=== PATIENT | female | born 1970 | race Caucasian/White ===

== ENCOUNTER 2017-02-02 02:39 | Inpatient (IN) | payer OTHER ==
[~2017-02-02] VITALS: Ht 170.2 cm; Wt 87.1 kg
[~2017-02-02 02:39] MED LIST: ALTACE1.25 MG PO; CARVEDILOL12.5 MG PO; CARVEDILOL25 M1 PO; COREG 25 MG TAB25 MG PO; PERCOCET 325 MG1 TA2 PO; RAMIPRIL PO; RAMIPRIL1.25 MG PO
[2017-02-02 07:48] LABS: ABSOLUTE BASOPHIL COUNT 0 /CUMM (0.0-0.2); ABSOLUTE EOSINOPHIL COUNT 0 /CUMM (0.0-0.7); ABSOLUTE GRANULOCYTE CT 4.8 /CUMM (1.4-6.5); ABSOLUTE LYMPH COUNT 0.9 /CUMM (1.2-3.4); ABSOLUTE MONOCYTE COUNT 0.4 /CUMM (0.10-0.60); BASOPHIL % 0.5 % (0.0-2.0); EOSINOPHIL % 0.2 % (0-5); GRANULOCYTE % 78.5 % (42.2-75.2); HEMATOCRIT 40.7 % (37-47); MEAN CORPUSCULAR HGB 28.6 PG (27.0-31.0); MEAN CORPUSCULAR HGB CONC 32.9 G/DL (33.0-37.0); MEAN CORPUSCULAR VOLUME 87.1 FL (81.0-99.0); MEAN PLATELET VOLUME 9.2 FL (7.4-10.4); PLATELET COUNT 187 /CUMM (130-400); RBC DISTRIBUTION WIDTH 13.5 % (11.5-14.5); RED BLOOD CELL CT 4.67 /CUMM (4.20-5.40); WHITE BLOOD CELL COUNT 6.1 /CUMM (4.8-10.8)
--- NOTE | 2017-02-02 18:33 | Operative Report ---
Operative/Inv Procedure Report Surgery Date: 02/02/17 Name of Procedure: closure colostomy Pre-Operative Diagnosis: colostomy s/p Hartmans Post-Operative Diagnosis: same Estimated Blood Loss: scant Surgeon/Career Guidance Technician: AMOS OSUNA,JOSEMANUEL FORMAN Anesthesia: general endotracheal tube Operative/Procedure Note Note: Patient was positioned supine, after induction of general anesthesia, a tap block was performed, IV antibiotics were given Fowler catheter was placed and then she was repositioned into lithotomy and I irrigated her rectal stump with dilute Betadine solution pulling out a few large firm balls of stool in the process. Then I sutured shut the colostomy at the skin with silk suture .Then her abdomen was prepped and draped in usual sterile fashion. The attenuated midline scar from the Cadena's was re-incised / excised. This was deepened to the fascia which was very attenuated. Next we had to lyse extensive adhesions mostly between the small bowel loops themselves and between the bowel loops and the deeper peritoneum including the bladder. In so doing, the rectal stump was identified, it appeared supple, we checked its trajectoyry with a EEA sizer, and also irrigated the stump some more to check fot holes, there were none. We then turned our efforts to disconnect the colostomy from the abdominal wall first by incising around it through the skin deepening that circumferentially paying care not to injure the mesentery and then after maxing out the dissection from the outside we then completed it from the inside. The very end of the ostomy was trimmed and then engaged with the pursestring device having sized it for a 28 EEA. Then the Bookwalter retractor was set up to make room retracting the small bowel up, then an EEA was advanced through the anus and mated with the anvil and fired, both donuts were complete, there was suzan-like stool there aroung the EEA , despite all the irrigating, the integrity of the anastomosis was checked with the proctoscope by gently pumping air across the anastomosis, with a bowel clamp proximally, while submerged under irrigation to check for leaks after several checks was confirmed there were none. The abdomen was then irrigated and closed in layers using 2-0 Maxon for the fascia but this was more work to trim the attenuated fascia back to the rectus, followed by interrupted Vicryl sutures subdermally, especially at the umbilcus, leaving gaps for iodoform daron, in similar fashion the colostomy site was closed in layers using Vicryl for the peritoneum and then the Maxon for the fascia this site was wicked as well. Both incisions were reapproximated the skin level with clovis and then covered with gauze and island dressings. EBL minimal lap and sponge counts correct wound expectancy was clean- contaminated, IV fluids crystalloid complications none, patient tolerated the procedure well and was returned to the recovery room in satisfactory condition.
--- NOTE | 2017-02-02 19:54 | Admission Core Measures ---
Admission Lab Results I reviewed the following labs: Laboratory Tests 02/02 0733 Chemistry Sodium (137 - 145 mmol/L) 141 Potassium (3.5 - 5.1 mmol/L) 4.6 Chloride (98 - 107 mmol/L) 102 Carbon Dioxide (22 - 30 mmol/L) 29 Anion Gap (5 - 16) 10 BUN (7 - 17 mg/dL) 17 Creatinine (0.5 - 1.0 mg/dL) 0.8 Estimated GFR (>60 ml/min) > 60 BUN/Creatinine Ratio (7 - 25 %) 21.3 Glucose (65 - 99 mg/dL) 93 Calcium (8.4 - 10.2 mg/dL) 9.6 Hematology CBC w Diff NO MAN DIFF REQ WBC (4.8 - 10.8 /CUMM) 6.1 RBC (4.20 - 5.40 /CUMM) 4.67 Hgb (12.0 - 16.0 G/DL) 13.4 Hct (37 - 47 %) 40.7 MCV (81.0 - 99.0 FL) 87.1 MCH (27.0 - 31.0 PG) 28.6 RDW (11.5 - 14.5 %) 13.5 Plt Count (130 - 400 /CUMM) 187 MPV (7.4 - 10.4 FL) 9.2 Gran % (42.2 - 75.2 %) 78.5 H Lymphocytes % (20.5 - 51.1 %) 14.3 L Monocytes % (1.7 - 9.3 %) 6.5 Eosinophils % (0 - 5 %) 0.2 Basophils % (0.0 - 2.0 %) 0.5 Absolute Granulocytes (1.4 - 6.5 /CUMM) 4.8 Absolute Lymphocytes (1.2 - 3.4 /CUMM) 0.9 L Absolute Monocytes (0.10 - 0.60 /CUMM) 0.4 Absolute Eosinophils (0.0 - 0.7 /CUMM) 0 Absolute Basophils (0.0 - 0.2 /CUMM) 0 PUBS MCHC (33.0 - 37.0 G/DL) 32.9 L Urines Urine Test NEGATIVE Admission Meds I reviewed the following Meds: Current Medications Sig/Lloyd Start time Last Medication Dose Stop Time Status Admin Ampicillin Sodium/ 3,000 MG ONCE 02/02 0000 NR Sulbactam Sodium 02/02 2359 (Unasyn) Sodium Chloride 100 ML (Normal Saline 0.9%) Carvedilol 25 MG BID 02/02 2200 AC (Coreg) Lisinopril 10 MG DAILY 02/03 1000 AC (Prinivil) Morphine Sulfate 4 MG Q2P PRN 02/02 1745 CAN (Morphine) Morphine Sulfate 2 MG Q2P PRN 02/02 1745 CAN (Morphine) Potassium Chloride 20 MEQ Q10H 02/02 1745 AC (KCl 20MEQ in D5W 1/ 2NS 1000ML) Dextrose/Sodium 1,000 ML Chloride (D5W-1/2 Normal Saline 1000ML) Acute Coronary Syndrome Inclusion Criteria ACS Diagnosis No Inpatient Core Measures LDL Reminder: If No, please order W/I first 24hr of stay Congestive Heart Failure Inclusion Criteria CHF Diagnosis No Cerebrovascular accident Inclusion Criteria CVA/TIA Diagnosis No Inpatient Core Measures Bedside Swallow Eval Reminder: If BSE failed, place ST order Antithrombotic Reminder: Order Antithrombotic Medication by end of day 2 Antithrombotic Reminder: Document Reason Antithrombotic Not ordered by end of day 2 AFIB/Flutter Reminder: If Present, add to problem list AFIB/Flutter Reminder: Order Anticoag Medication for pts with AFIB/Flutter Atherosclerosis Reminder: If Present, add to problem list LDL Reminder: If No, please order W/I first 24hr of stay PT Order Reminder: If No, please order Venous thromboembolism Inpatient Core Measures VTE Risk Factors: Age > 40, [facility] prophylaxis d/t No contraindications No VTE Pharm Prophylaxis d/t No contraindications Inclusion Criteria - Per Current guidelines, there needs to be overlap - treatment for the first 5 days of Warfarin therapy. - Parenteral Anticoagulation (IV or SC) needs to be - given along with Warfarin therapy. VTE Diagnosis No VTE Type NONE VTE Confirmed by (Test) NONE Problem List As ranked by this Provider includes Assessment & Plan 1. History of colostomy reversal HOME MEDS Home Med List Carvedilol 25 MG TABLET 1 TAB PO BID BP (Reported) Ramipril 1.25 MG CAPSULE 1 CAP PO NOON BP (Reported)
[2017-02-02 20:00] VITALS: BP 120/72
--- NOTE | 2017-02-02 20:15 | PN- General Surgery ---
Subjective Subjective: Pt was seen in pacu. No major complaints and pain is well controlled. No nausea or emesis. She is npo. Not OOB as of yet. Objective Vital Signs and I&Os VSS. Afebrile. Physical Exam: General: Awake and alert. NAD. Cardiac: regular Pulmonary: CTA bilaterally. Abdomen: Soft and moderately distended, but within expected limits. There is a large gauze dressing overlying an a midline island dressing, with scant bloody drainage. No BS were heard. Assessment/Plan Assessment/Plan Pt is 46 yo F who is now POD #0 s/p Colostomy reversal. Plan: -Keep pt npo for now with IVF. Monitor lytes. -Pain control with morphine prn. -Zofran prn nausea. -IV Unasyn x 24 hours for prophylaxis. -SC heparin for DVT ppx. -Reinforce dressing prn. -Ok to ambulate. Core Measures/Miscellaneous Venous Thromboembolism VTE Risk Factors: Age > 40, Surgery VTE Contraindications: No Contraindications VTE Diagnosis: No VTE Type: NONE VTE Confirmed by (Test): NONE Beta Danielle Is Beta Danielle a Home Med? Yes If Yes, Was This Ordered Today? Yes Antibiotics Is Patient on Antibiotics? Yes If Yes: prophylaxis
[2017-02-02 23:08] VITALS: BP 128/76
--- NOTE | 2017-02-02 23:40 | NUR ---
PATIENT REFUSED 2200 DOSE OF COREG. DASIA MONTESINOS CALLED AND INFORMED. PATIENT'S CURRENT BP IS 128/76 AND HR 76. PATIENT IS IN NO DISTRESS, RESTING COMFORTABLY AT THIS TIME. NO NEW ORDERS.
[2017-02-03 06:58] VITALS: BP 120/56
--- NOTE | 2017-02-03 08:12 | PN- General Surgery ---
See Addendum Subjective Subjective: pod#1 s/p colostomy reversal no major issues overnight denies cp, sob ngt in place asif with clear urine Objective Vital Signs and I&Os Vital Signs Date Time Temp Pulse Resp B/P B/P Pulse O2 O2 Flow FiO2 Mean Ox Delivery Rate 02/03 0658 98.5 66 18 120/56 98 Nasal Cannula 02/03 0000 Nasal 1.0L Cannula 02/02 2334 76 128/76 02/028 98.0 76 18 128/76 98 Nasal Cannula 02/02 2027 99 Nasal 1.0L Cannula 02/03 2000 98.2 70 14 120/72 99 Nasal 1.0L Cannula Intake & Output 02/03 1600 02/03 0800 02/03 0000 02/02 1600 02/02 0800 02/02 0000 Intake Total 800 300 Output Total 600 Balance -600 800 300 Intake, IV 800 300 Output, Urine 600 Patient 193 lb Weight Weight Standing Scale Measurement Method Physical Exam: cv: rrr lungs: clear abd: soft minimal tenderness to palp no guarding or evidence of peritonitis hypoactive bs drsg dry ext: warm, distal cms inatct asif: clear urine ngt: scant output Assessment/Plan Assessment/Plan surgical stable plan oob/ambulate(may clamp ngt for ambualtion) f/u am labs d/c asif hep sq/alps for dvt prophylaxis await improved bowel fxn advance diet per attending Core Measures/Miscellaneous Venous Thromboembolism VTE Risk Factors: Age > 40, Surgery VTE Contraindications: No Contraindications VTE Diagnosis: No VTE Type: NONE VTE Confirmed by (Test): NONE Beta Danielle Is Beta Danielle a Home Med? Yes If Yes, Was This Ordered Today? Yes Antibiotics Is Patient on Antibiotics? Yes If Yes: prophylaxis
[2017-02-03 08:39] LABS: ABSOLUTE BASOPHIL COUNT 0 /CUMM (0.0-0.2); ABSOLUTE EOSINOPHIL COUNT 0 /CUMM (0.0-0.7); ABSOLUTE GRANULOCYTE CT 8.7 /CUMM (1.4-6.5); ABSOLUTE LYMPH COUNT 1.1 /CUMM (1.2-3.4); ABSOLUTE MONOCYTE COUNT 0.7 /CUMM (0.10-0.60); BASOPHIL % 0 % (0.0-2.0); EOSINOPHIL % 0 % (0-5); HEMATOCRIT 40.4 % (37-47); MEAN CORPUSCULAR HGB 28.9 PG (27.0-31.0); MEAN CORPUSCULAR HGB CONC 32.5 G/DL (33.0-37.0); MEAN CORPUSCULAR VOLUME 88.7 FL (81.0-99.0); MEAN PLATELET VOLUME 9.8 FL (7.4-10.4); PLATELET COUNT 166 /CUMM (130-400); RBC DISTRIBUTION WIDTH 13.9 % (11.5-14.5); RED BLOOD CELL CT 4.55 /CUMM (4.20-5.40)
[2017-02-03 09:25] LABS: WHITE BLOOD CELL COUNT 10.5 /CUMM (4.8-10.8)
[2017-02-03 10:12] VITALS: BP 118/72
[2017-02-03 14:23] VITALS: BP 92/62
--- NOTE | 2017-02-03 17:40 | NUR ---
AT THIS TIME, PT NGT CAME OUT, SURGICAL PA GEORGE #[id number] AWARE, PER SURGICAL PA NGT NOT NECESSARY BUT CONTINUE TO MONITOR FOR N/V AND DISTENTION, NONE NOTED AT THIS TIME, SAFETY MAINTAINED, NEEDS WITHIN REACH
[2017-02-03 23:00] VITALS: BP 104/64
[2017-02-04 06:03] VITALS: BP 110/70
--- NOTE | 2017-02-04 09:03 | PN- General Surgery ---
See Addendum Subjective Subjective: NGT was dc'd inadvertantly overnight. Since tube out, no hiccuping and no persistent belching. No nausea or vomitting. She had small amout of flatus one day ago, but not today. She denies chest pain, shortness of breath and difficulty breathing. She has been voiding. She states that she feels pain when attempting to ambulate, incisional pain, but is otherwise comfortable. Objective Vital Signs and I&Os Vital Signs Date Time Temp Pulse Resp B/P B/P Pulse O2 O2 Flow FiO2 Mean Ox Delivery Rate 02/04 0603 98.4 86 18 110/70 98 Room Air 02/04 0000 98 Nasal 1.0L Cannula 02/03 2300 98.1 77 16 104/64 98 Nasal 1.0L Cannula 02/03 2139 77 104/64 02/03 1600 Nasal 1.0L Cannula 02/03 1423 98.2 64 20 92/62 99 Nasal 1.0L Cannula 02/03 1012 99.0 72 20 118/72 99 Nasal 1.0L Cannula 02/03 0911 82 124/64 Intake & Output 02/04 1600 02/04 0800 02/04 0000 02/03 1600 02/03 0800 02/03 0000 Intake Total 810 800 50 800 300 Output Total 500 1150 Balance 810 300 -1100 800 300 Intake, IV 800 800 800 300 Intake, Oral 10 0 Intake, Other 50 Number 0 Bowel Movements Output, Urine 500 1150 Patient 193 lb Weight Weight Standing Scale Measurement Method Physical Exam: General: Alert and oriented x3, no acute distress Cardiac: RRR, s1s2 Pulm: CTA bilaterally Abd: Soft, non-distended, no guarding, no signs of peritonitis presently. Hypoactive bowel sounds auscultated. dressing dry and intact Extremities: Moves all extremities, distal sensation intact. Skin warm and well perfused. Bilateral calves soft and non-tender. Assessment/Plan Assessment/Plan This is a 46 year old female, POD 2 s/p colostomy reversal. NGT dc'd. -NPO, await improved bowel function -Will replace NGT if nausea/vomitting, hiccupping, belching, distension -Continue iv fluids for now -Continue current pain regimen -Continue sub q heparin/ALPS for dvt ppx AMBULATE -Will d/w Dr. Bryant/Joy Core Measures/Miscellaneous Venous Thromboembolism VTE Risk Factors: Age > 40, Surgery VTE Contraindications: No Contraindications VTE Diagnosis: No VTE Type: NONE VTE Confirmed by (Test): NONE Beta Danielle Is Beta Danielle a Home Med? Yes If Yes, Was This Ordered Today? Yes Antibiotics Is Patient on Antibiotics? Yes If Yes: prophylaxis
[2017-02-04 15:25] VITALS: BP 112/62
--- NOTE | 2017-02-04 18:19 | NUR ---
PT AMBULATED AROUND 2NORTHB AND A THREE TIMES TODAY. COMPLAINTS OF ABDOMINAL DISCOMFORT WHEN RISING FROM BED BUT MEDICATION NOT NEEDED. TOLERATED ACTIVITY WELL, NO DIZZINESS OR LIGHTHEADEDNESS, NO COMPLAINTS OF PAIN DURING AMBULATION.
[2017-02-04 22:31] VITALS: BP 118/68
[2017-02-05 07:24] VITALS: BP 100/62
[2017-02-05 08:12] LABS: ABSOLUTE BASOPHIL COUNT 0 /CUMM (0.0-0.2); ABSOLUTE GRANULOCYTE CT 5.8 /CUMM (1.4-6.5); MEAN PLATELET VOLUME 9.4 FL (7.4-10.4); RBC DISTRIBUTION WIDTH 13.8 % (11.5-14.5); WHITE BLOOD CELL COUNT 7.4 /CUMM (4.8-10.8)
--- NOTE | 2017-02-05 08:18 | PN- General Surgery ---
See Addendum Subjective Subjective: POD#3 S/P COLOSTOMY REVERSAL NO MAJOR ISSUES OVERNIGHT DENNIES CP, SOB, NO N+V DENIES BLOATING, BELCHING OR INCREASED ABD PAIN WITH NGT REMOVAL +FLATUS, NO BM Objective Vital Signs and I&Os Vital Signs Date Time Temp Pulse Resp B/P B/P Pulse O2 O2 Flow FiO2 Mean Ox Delivery Rate / 0724 98.7 69 18 100/62 99 Room Air 02/04 2238 118/68 / 2231 98.9 86 18 118/68 97 Room Air / 1609 79 124/80 / 1525 98.0 78 18 112/62 95 Room Air / 0937 81 116/80 Intake & Output / 1600 / 0800 02/05 0000 / 1600 02/04 0800 / 0000 Intake Total 800 300 805 810 800 Output Total 500 1025 525 500 Balance 300 -725 280 810 300 Intake, IV 800 300 800 800 800 Intake, Oral 0 0 5 10 0 Number 0 0 Bowel Movements Output, Urine 500 1025 525 500 Physical Exam: CV: RRR LUNGS: CLEAR ABD: SOFT, +BS FILIBERTO INCISIONAL TENDERNESS TO PALP DSRG/PACKING CHANGED WOUND WITH MINIMAL DRAINAGE EXT: WARM, NO CALF TENDERNESS DISTAL CMS INTACT Assessment/Plan Assessment/Plan SURGICAL STABLE PLAN CONT CURERNT REGIME AMBULATE/OOB TODAY AWAIT IMPROVED BOWEL FXN ADVANCE DIET PER ATTNEDING Core Measures/Miscellaneous Venous Thromboembolism VTE Risk Factors: Age > 40, Surgery VTE Contraindications: No Contraindications VTE Diagnosis: No VTE Type: NONE VTE Confirmed by (Test): NONE Beta Danielle Is Beta Danielle a Home Med? Yes If Yes, Was This Ordered Today? Yes Antibiotics Is Patient on Antibiotics? Yes If Yes: prophylaxis
[2017-02-05 08:33] LABS: ABSOLUTE EOSINOPHIL COUNT 0 /CUMM (0.0-0.7); ABSOLUTE MONOCYTE COUNT 0.5 /CUMM (0.10-0.60); BASOPHIL % 0.2 % (0.0-2.0); EOSINOPHIL % 0.5 % (0-5); GRANULOCYTE % 78.6 % (42.2-75.2); MEAN CORPUSCULAR HGB 29.4 PG (27.0-31.0); MEAN CORPUSCULAR HGB CONC 33.2 G/DL (33.0-37.0); MEAN CORPUSCULAR VOLUME 88.4 FL (81.0-99.0); PLATELET COUNT 140 /CUMM (130-400)
[2017-02-05 08:40] LABS: HEMATOCRIT 33.5 % (37-47)
--- NOTE | 2017-02-05 10:27 | Patient Discharge Instructions ---
Discharge Instructions General Discharge Information You were seen/treated for: s/p slade's procedure You had these procedures: colostomy reversal Watch for these problems: temp>101.5, increased wound drainage/redness, increased abdominal pain Call Surgeon to remove: [place] No bath, but you may shower: Yes Other wound care: keep wounds clean and dry Activity Activity Limited to: Weight bear as tolerated Other activity limits: no strenuous no lifting more than 10 pounds Acute Coronary Syndrome Inclusion Criteria At DC or during hospital stay patient has or had the following: ACS DIAGNOSIS No Discharge Core Measures Meds if any: Prescribed or Continued at Discharge Meds if any: NOT Prescribed or Continued at Discharge Congestive Heart Failure Inclusion Criteria At DC or during hospital stay patient has or had the following: CHF DIAGNOSIS No Discharge Core Measures Meds if any: Prescribed or Continued at Discharge Meds if any: NOT Prescribed or Continued at Discharge Cerebrovascular accident Inclusion Criteria At DC or during hospital stay patient has or had the following: CVA/TIA Diagnosis No Discharge Core Measures Meds if any: Prescribed or Continued at Discharge Meds if any: NOT Prescribed or Continued at Discharge Venous thromboembolism Inclusion Criteria VTE Diagnosis No VTE Type NONE VTE Confirmed by (Test) NONE Discharge Core Measures - Per Current guidelines, there needs to be overlap - treatment for the first 5 days of Warfarin therapy. - If discharged on Warfarin prior to 5 days of - overlap therapy, the patient will need to be - assessed for post discharge needs including - *Post discharge parental anticoagulation - *Warfarin and/or parental anticoagulation education - *Follow up date to check INR post discharge At least 5 days overlap therapy as Inpatient No Meds if any: Prescribed or Continued at Discharge Note: Overlap Therapy is Warfarin and Anticoagulant Meds if any: NOT Prescribed or Continued at Discharge
[2017-02-05 15:15] VITALS: BP 142/84
[2017-02-05 23:00] VITALS: BP 118/72
[2017-02-06 06:03] VITALS: BP 130/84
--- NOTE | 2017-02-06 07:39 | PN- General Surgery ---
Subjective Subjective: Awake, alert No complaints overnight Pain well controlled Ambulating without difficulty Denies nausea Tolerating clears Continues to have loose BM's and is passing a lot of flatus Objective Vital Signs and I&Os Vital Signs Date Time Temp Pulse Resp B/P B/P Pulse O2 O2 Flow FiO2 Mean Ox Delivery Rate 02/06 0603 98.3 77 20 130/84 98 Room Air 02/05 2300 98.6 76 20 118/72 95 Room Air 02/05 2227 76 118/72 02/05 1515 98.5 89 20 142/84 96 Room Air Intake & Output 02/06 0800 02/06 0000 02/05 1600 02/05 0800 02/05 0000 02/04 1600 Intake Total 450 800 800 300 805 Output Total 550 939 261 2382 525 Balance -100 0 300 -725 280 Intake, IV 100 800 300 800 Intake, Oral 450 700 0 0 5 Number 0 Bowel Movements Output, Urine 550 480 309 2839 525 Patient 192 lb Weight Physical Exam: VSS, afebrile good urine output General: alert and oriented times three Chest: clear anteriorly bilaterally, RRR Abd: soft, nondistended, appropriately tender near incisions, good bowel sounds all 4 quadrants Wound: dressing changed, clovis intact, no drainage, packing changed in lower midline, pulled back at ostomy site Ext: warm, no edema, ALPS in place Assessment/Plan Assessment/Plan 46 yo female s/p colostomy reversal pod 4 Progressing well ?advance diet ? dc home continue hep sc for dvt ppx Will discuss dc planning with Dr Hamilton Core Measures/Miscellaneous Venous Thromboembolism VTE Risk Factors: Age > 40, Surgery VTE Contraindications: No Contraindications VTE Diagnosis: No VTE Type: NONE VTE Confirmed by (Test): NONE Beta Dainelle Is Beta Danielle a Home Med? Yes If Yes, Was This Ordered Today? Yes Antibiotics Is Patient on Antibiotics? Yes If Yes: prophylaxis
[2017-02-06 08:45] VITALS: BP 128/78
[2017-02-06] MEDS ORDERED: PERCOCET 5-3251 EACH PO (10:18)
--- NOTE | 2017-02-06 10:38 | NUR ---
NURSING NOTE: PT STABLE FOR DISCHARGE PER MD. PT REESE CL LIQ DIET. PT TO ADVANCE DIET HERSELF AT HOME PER DR. TRINIDAD. DSG CDI. PT ALREADY HAS A SCHEDULED APT WITH DR. TRINIDAD FOR F/U
--- NOTE | 2017-02-06 12:46 | Discharge Summary ---
Visit Information Visit Dates Admission Date: 02/02/17 Discharge Date: 02/06/17 Hospital Course Course Attending Physician: JOSEMANUEL TRINIDAD MD Primary Care Physician: ESME LEBLANC MD Hospital Course: Admitted for colostomy reversal on Sunday did well over the weekend yesterday we started diet today she continues to feel well without any pain on small bowel movements passing gas no fevers no sweats incision has minimal drainage the daron were changed, labs are stable Allergies: Coded Allergies: No Known Allergies (02/11/16) Disposition Summary Disposition Principal Diagnosis: Colostomy after Cadena's for ruptured diverticulitis Additional Diagnosis: None acute Discharge Disposition: home or self care Discharge Instructions General Discharge Information Code Status: Full Code Patient's Diet: Avoid large portions of chewy food or candy or high fiber, advance to solids on her own gradually avoid straining Patient's Activity: Avoid straining she can pull the daron out tomorrow and follow-up in the office next week for clovis Follow-Up Instructions/Appts: As above follow-up in the office next week or sooner if nausea vomiting diarrhea fever or chills or new abdominal pain Medications at Discharge Discharge Medications: Continue taking these medications: Ramipril (Ramipril) 1.25 MG CAPSULE 1 Capsule ORAL NOON Comments: Last Taken: 02/05/17 Time: 4:00 PM (LISINOPRIL GIVEN) Carvedilol (Carvedilol) 25 MG TABLET 1 Tablet ORAL TWICE DAILY Comments: Last Taken: 02/06/17 Time: 9:00 AM Start taking the following new medications: Oxycodone HCl/Acetaminophen (Percocet 5-325 MG Tablet) 5 MG-325 MG TABLET 1-2 Tablet ORAL EVERY 4 HOURS NEEDED as needed for PAIN Qty = 36 No Refills Comments: NOT GIVEN IN HOSPITAL Copies To: JOSEMANUEL TRINIDAD MD
== END 2017-02-06 10:40 | DRG 345 ==
LOC: 2NB 02:39 → SDA 02:39 → ENRESERV 18:48 → ENTRNSPT 19:30 → 2NB 19:56 → CMPTRNSPT 20:00 → ENPENDDIS 02-06 10:20 → 2NB 02-06 10:40
PROVIDERS: Nurse Practitioner; Physician Assistant Surgical; ADMIT Surgery
PROC: 0DSM0ZZ Reposition Descending Colon, Open Approach (ICD-10-PCS; principal; 2017-02-02)
DX: Z43.3 Encounter for attention to colostomy (principal); I42.9 Cardiomyopathy, unspecified; K56.7 Ileus, unspecified; I10 Essential (primary) hypertension
CPT/HCPCS: 2NBSP; 36415; 81025; 82436; 87086; 88304; J0131; J1100; J1644; J1885; J2405; J2550; J7042